=== PATIENT | female | born 2000 | race Asian ===

== ENCOUNTER 2023-03-11 01:08 | Observation (INO) | payer BC ==
[2023-03-11 02:14] LABS: #Eosinphils 0.1 10x3/uL (0.0-0.5); #Monocytes 0.5 10x3/uL (0.0-1.1); #Neutrophils 7.3 10x3/uL (1.5-8.4); %Basophils 0.1 % (0.0-2.0); %Eosinophils 0.9 % (0.0-6.0); %Lymphocytes 13.6 % (18.0-47.0); %Monocytes 5.2 % (0.0-10.0); Hemoglobin 12.4 g/dL (12.0-15.5); Mean Corpuscular HGB CONC 34.4 g/dL (32.0-36.0); Mean Corpuscular Hemoglobin 31.3 pg (27.0-33.0); Mean Corpuscular Volume 90.9 fl (81.6-98.3); Platelet Count 230 10x3/uL (150-450); RBC Distribution Width 11.9 % (11.5-14.5); Red Blood Cell (RBC) Count 3.96 10x6/uL (3.90-5.03); White Blood Cell (WBC) Count 9.2 10x3/uL (3.5-10.5)
[2023-03-11] MEDS ORDERED: Morphine 4 MG/ML VIAL ONE ×2 (03:51→04:57)
[2023-03-11 04:39] VITALS: BMI 18.8
[2023-03-11] MEDS ORDERED: Morphine 4 MG/ML VIAL SLOW IVP SCH ×2 (05:15→08:45)
[2023-03-11] MEDS ORDERED: Bupivacaine HCl 0.5%/Epinephrine 1:200,000/PF 30 ml Vial ONE (05:39)
[2023-03-11] MEDS ORDERED: Fentanyl 100 MCG/2 ML VIAL ONE (06:13)
[2023-03-11] MEDS ORDERED: CEFAZOLIN 1 GM VIAL ONE (06:20)
[2023-03-11] MEDS ORDERED: Midazolam HCl 2 mg/2 ml Vial ONE (06:24)
[2023-03-11] MEDS ORDERED: ePHEDrine Sulfate 50 MG/10 ML VIAL ONE (06:36)
[2023-03-11] MEDS ORDERED: Glycopyrrolate 0.2 MG/ML 5 ML SYRINGE ONE (07:22)
[2023-03-11] MEDS ORDERED: Ketorolac Tromethamine 30 MG/ML VIAL ONE (07:22)
[2023-03-11] MEDS ORDERED: Bacitracin 1 PK ONE (07:33)
[2023-03-11] MEDS ORDERED: HYDROcodone/Acetaminophen 5/325 mg Tablet PO PRN ×2 (08:00)
[2023-03-11 12:21] VITALS: BP 105/68; TEMP 98.1
== END 2023-03-11 15:45 | disposition home or self-care (01) ==
LOC: CSHERS 01:08 → CSHPP 04:21 → INTOOBSV 04:21
PROVIDERS: ADMIT Obstetrics & Gynecology; ATTEND Obstetrics & Gynecology
PROC: 10D24ZZ Extraction of Products of Conception, Ectopic, Percutaneous Endoscopic Approach (ICD-10-PCS; principal; 2023-03-11)
DX: O73.1 Retained portions of placenta and membranes, without hemorrhage (principal); O00.102 Left tubal pregnancy without intrauterine pregnancy; O26.899 Other specified pregnancy related conditions, unspecified trimester; R10.9 Unspecified abdominal pain; K66.1 Hemoperitoneum
CPT/HCPCS: 36415; 76856; 84702; 85025; 86850; 86900; 86901; 88305; J0690; J1885; J2250; J2270; J3010